=== PATIENT | female | born 1985 | race Caucasian/White ===

== ENCOUNTER 2021-05-01 10:46 | Emergency (ER) | payer BC, OTHER ==
[2021-05-01 11:30] VITALS: TEMP 97.7; BMI 22.1
[2021-05-01] MEDS ORDERED: SODIUM CHLORIDE 0.9% 500 ML INFUS.BAG IV ONE (12:27)
[2021-05-01 13:21] LABS: HEMATOCRIT 39.9 % (32.4-45.2); HEMOGLOBIN 13.5 GM/dL (10.7-15.3); MCH 28.5 pg (25.7-33.7); MCHC 33.9 g/dl (32.0-36.0); MEAN CELL VOLUME 84.1 fl (80-96); MEAN PLT VOLUME 9.6 fl (7.5-11.1); PLATELET COUNT 225 10^3/uL (134-434); RBC 4.74 M/mm3 (3.60-5.2); RDW 13.9 % (11.6-15.6); WHITE BLOOD COUNT 7.4 K/mm3 (4.0-10.0)
[2021-05-01 13:27] LABS: PH,URINE 7.5 (5.0-8.0); URINE APPEARANCE CLEAR; URINE BILIRUBIN NEGATIVE (NEGATIVE); URINE COLOR YELLOW; URINE GLUCOSE (UA) NEGATIVE (NEGATIVE); URINE KETONE NEGATIVE (NEGATIVE); URINE LEUK ESTERASE NEGATIVE (NEGATIVE); URINE NITRITE NEGATIVE (NEGATIVE); URINE PROTEIN NEGATIVE (NEGATIVE); URINE UROBILINOGEN 0.2 mg/dL (0.2-1.0)
[2021-05-01 13:29] LABS: HCG,QUALITATIVE URINE Negative; INR 1.08 (0.83-1.09); PROTHROMBIN TIME (PATIENT) 13.3 SEC (9.7-13.0)
[2021-05-01 13:31] LABS: ACTIVATED PTT 33.3 SECONDS (25.2-36.5)
[2021-05-01 13:53] LABS: CHLORIDE 107 mmol/L (98-107); SODIUM 139 mmol/L (136-145)
[2021-05-01 13:57] LABS: ALBUMIN 4.5 g/dl (3.4-5.0); ANION GAP 7 MMOL/L (8-16); BLOOD UREA NITROGEN 9.8 mg/dL (7-18); CALCIUM 9.2 mg/dL (8.5-10.1); CO2 26 mmol/L (21-32); GLUCOSE,RANDOM 87 mg/dL (74-106)
[2021-05-01 14:00] LABS: CREATININE 0.8 mg/dL (0.55-1.3); SGOT/AST 26 U/L (15-37); SGPT/ALT 26 U/L (13-61)
[2021-05-01 14:02] LABS: BILIRUBIN,TOTAL 0.6 mg/dL (0.2-1); TOT PROT 8.2 g/dl (6.4-8.2)
[2021-05-01 14:03] LABS: ALK PHOS 44 U/L (45-117)
[2021-05-01 15:59] VITALS: BP 117/75; PULSE 75
== END 2021-05-01 15:57 | disposition home or self-care (01) ==
LOC: JER 10:46
DX: R00.2 Palpitations (principal)
CPT/HCPCS: 36415; 71046-TC-FY; 80053; 81003; 82550; 84443; 84484; 84703; 85027; 85610; 85730; 87086; 93005; 93010; 99284-25